=== PATIENT | male | born 1995 | race Caucasian/White ===

== ENCOUNTER 2024-03-03 17:59 | Outpatient (REF) | payer MEDICAID, SELFPAY ==
[2024-03-03 22:19] LABS: HCT 43.9 % (40.0-50.0); HGB 14.9 g/dL (13.5-17.5); MCHC 33.9 % (32.0-36.0); MCV 88 fL (80-95); MPV 10.4 fL (8.0-11.0); Platelet Count 236 10^3/uL (130-400); RBC 4.97 10^6/uL (4.36-5.78); RDW 12.2 % (11.8-14.1); WBC 7.26 10^3/uL (4.4-10.8)
[2024-03-03 22:26] LABS: BUN 18 mg/dL (7-18); CREATININE 1.1 mg/dL (0.70-1.30); Calcium 9.3 mg/dL (8.5-10.1); Chloride 104 mmol/L (98-107); Estimated GFR 93.19 (mL/min/1.73m2); Ferritin 105 ng/mL (26-388); Glucose 106 mg/dL (74-106); Sodium 140 mmol/L (136-145); Vitamin D 25 Total 45.5 ng/mL (30-100)
== END 2024-03-03 18:00 | disposition home or self-care (01) ==
LOC: NCHCN 17:59
PROVIDERS: Visit Provider Family Medicine
DX: N50.812 Left testicular pain (principal); Z13.0 Encounter for screening for diseases of the blood and blood-forming organs and certain disorders involving the immune mechanism; Z00.00 Encounter for general adult medical examination without abnormal findings
CPT/HCPCS: 80048; 82306; 85027; 82728

== ENCOUNTER 2024-09-17 16:09 | Outpatient (REF) | payer MEDICAID, SELFPAY ==
[2024-09-17 21:31] LABS: HCT 45.5 % (40.0-50.0); HGB 15.5 g/dL (13.5-17.5); MCH 30.5 pg (27.0-33.0); MCHC 34.1 % (32.0-36.0); MCV 90 fL (80-95); MPV 10.5 fL (8.0-11.0); Platelet Count 242 10^3/uL (130-400); RBC 5.08 10^6/uL (4.36-5.78); RDW 12.2 % (11.8-14.1); RDW-SD 40.7 fL; WBC 7.33 10^3/uL (4.4-10.8)
[2024-09-17 22:11] LABS: BUN 21 mg/dL (7-18); Calcium 9.3 mg/dL (8.5-10.1); Chloride 104 mmol/L (98-107); Estimated GFR 104.48 (mL/min/1.73m2); Ferritin 172 ng/mL (26-388); Glucose 99 mg/dL (74-106); Potassium 4.2 mmol/L (3.5-5.1); Sodium 143 mmol/L (136-145); Vitamin D 25 Total 43 ng/mL (30-100)
== END 2024-09-17 16:10 | disposition home or self-care (01) ==
LOC: NCHCN 16:09
PROVIDERS: Visit Provider Family Medicine
DX: Z13.1 Encounter for screening for diabetes mellitus (principal); Z13.0 Encounter for screening for diseases of the blood and blood-forming organs and certain disorders involving the immune mechanism; E55.9 Vitamin D deficiency, unspecified
CPT/HCPCS: 80048; 82306; 85027; 82728